=== PATIENT | female | born 1975 | race Caucasian/White ===

== ENCOUNTER 2022-05-12 03:44 | Emergency (ER) | payer OTHER, SELFPAY ==
[2022-05-12] VITALS (20 sets, daily range): BP systolic 127–165; BP diastolic 64–88; PULSE 82–106; RESP 16–37; TEMP 36.2; O2SAT 82–100; BMI 39.1
--- NOTE | 2022-05-12 03:57 | DI.RAD.S_ITS ---
PROCEDURE: XR CHEST 1V INDICATIONS: chest pain TECHNIQUE: One view of the chest was acquired. COMPARISON: [facility], CR, XR CHEST 2 VIEWS, 07/16/2021, 3:06. FINDINGS: Surgical changes and devices: None. Lungs and pleura: Lungs are clear. No pleural effusions or pneumothorax. Mediastinum: Mediastinal contours appear normal. Heart size is normal. Bones and chest wall: No suspicious bony lesions. Overlying soft tissues appear unremarkable. IMPRESSION: No acute cardiopulmonary disease process. Dictated by: Keri Dukes MD, PhD on 05/12/2022 at 8:15 Approved by: Keri Dukes MD, PhD on 05/12/2022 at 8:16
--- NOTE | 2022-05-12 04:10 | ED_ITS ---
HPI - SOB/Dyspnea <Ryder Kingston MD - Last Filed: 05/14/22 07:44> General Chief Complaint: Shortness of Breath/Dyspnea Stated Complaint: SOB, clammy Time Seen by Provider: 05/12/22 04:01 Source: patient Mode of arrival: Ambulatory History of Present Illness HPI Narrative: Patient here with partner. Complaints of feeling sweaty and shortness of breath and throat tightness. No chest pain. No back pain. No syncope. No numbness tingling or weakness. Patient states she has been up all night. Symptoms start ed at 2:00 a.m. this morning. 2 hours ago. Feeling better now. She usually gets up around 1:00 a.m. to go to work. Could not sleep all night. No new stressors. Family doctor did increase her Wellbutrin from 100 mg and is now 200 mg. That was 2 days ago. She did have similar episode 2 or 3 days ago with these symptoms before the change of medication as well. No exertional chest pain. Does not smoke. Does not take cholesterol medication or blood pressure medication. Father has coronary heart disease in his 50s. Patient states her menstrual cycle has been changed significantly as well since July 2021. The duration her cycles are shorter. And variable intensity Related Data Home Medications Medication Instructions Recorded Confirmed No Known Home Medications 05/12/22 05/12/22 Allergies Allergy/AdvReac Type Severity Reaction Status Date / Time No Known Drug Allergies Allergy Verified 05/12/22 03:58 Review of Systems <Ryder Kingston MD - Last Filed: 05/14/22 07:44> Review of Systems Narrative: GENERAL: Denies chills, fatigue, malaise, fever, positive sweats. HEENT: Denies sinus pain, ear pain, sore throat RESPIRATORY: Positive for dyspnea, negative cough CARDIOVASCULAR: Denies chest pain, palpitations GASTROINTESTINAL: Denies nausea, vomiting, abdominal pain : Denies dysuria, frequency, hematuria MUSCULOSKELETAL: denies muscle or bony pain SKIN: Denies rash, skin lesions NEUROLOGIC: Denies weakness, numbness ROS Unobtainable: All systems reviewed & are unremarkable except as noted in HPI and below Patient History <Ryder Kingston MD - Last Filed: 05/14/22 07:44> Social History Smoking Status: Never smoker Exam <Ryder Kingston MD - Last Filed: 05/14/22 07:44> Narrative Exam Narrative: GENERAL: in no distress, not toxic not dyspneic HEAD: Normocephalic. EYES: Pupils equal round No scleral icterus. ENT: Mucous membranes moist. NECK: Trachea midline. No thyromegaly CARDIOVASCULAR: Regular rate and rhythm without murmurs RESPIRATORY: Clear to auscultation. Breath sounds equal bilaterally. No wheezes, rales, or rhonchi. GASTROINTESTINAL: Abdomen soft, non-tender EXTREMITIES: No gross deformities. BACK: No flank tenderness. NEURO: AOx4. SKIN: Warm and dry not diaphoretic PSYCH: Not anxious, is cooperative Initial Vital Signs Initial Vital Signs: Vital Signs Pulse Rate 96 H 05/12/22 03:48 <Brit Tse DO - Last Filed: 05/12/22 09:31> Initial Vital Signs Initial Vital Signs: Vital Signs Pulse Rate 96 H 05/12/22 03:48 Scores <Ryder Kingston MD - Last Filed: 05/14/22 07:44> HEART Score Heart Score history: Slightly Suspicious Heart Score EKG: Normal Heart Score Age: 45-64 years old Heart Score risk factors: 1-2 risk factors Heart Score troponin: < or = to normal limit Heart Score Total: 2 <Brit Tse DO - Last Filed: 05/12/22 09:31> HEART Score Heart Score Total: 2 Course <Ryder Kingston MD - Last Filed: 05/14/22 07:44> Course Course Narrative: 7:00 a.m.. Sign out to Dr. Tse, patient remains chest pain-free. At this time exam and laboratory studies and imaging EKG are reassuring. Will need 2nd troponin at 8:00 a.m.. 6 hours from time of onset Orders Ordered: ED Orders 05/12/22 03:57 XR chest 1V Stat EKG-12 Lead Stat 05/12/22 04:00 Complete Blood Count AUTO DIFF Stat Comprehensive Metabolic Panel Stat D Dimer Stat Lipase Stat Magnesium Stat Test Serum,Qual Stat TSH [Thyroid Stimulating Hormone] Stat Troponin & CK Cardiac Panel Stat 05/12/22 04:20 Urine Drug Screen, Rapid Stat 05/12/22 08:15 Troponin & CK Cardiac Panel Stat Vital Signs Vital signs: Vital Signs - 8 hr 05/12/22 03:52 05/12/22 03:48 05/12/22 03:50 Temperature 97.2 F L Pulse Rate 89 96 H Respiratory Rate 20 Blood Pressure 165/86 H 165/86 H Pulse Oximetry 96 Oxygen Delivery Method Room Air 05/12/22 03:50 05/12/22 04:20 05/12/22 04:30 Temperature Pulse Rate 101 H 86 85 Respiratory Rate 19 Blood Pressure Pulse Oximetry 97 98 100 Oxygen Delivery Method 05/12/22 05:00 05/12/22 05:30 05/12/22 06:16 Temperature Pulse Rate 88 106 H 93 H Respiratory Rate 37 H 17 Blood Pressure Pulse Oximetry 100 100 82 L Oxygen Delivery Method 05/12/22 06:30 05/12/22 07:01 05/12/22 07:23 Temperature Pulse Rate 105 H 94 H 94 H Respiratory Rate 29 H 24 32 H Blood Pressure Pulse Oximetry 99 95 98 Oxygen Delivery Method 05/12/22 07:23 05/12/22 07:30 05/12/22 07:30 Temperature Pulse Rate 96 H Respiratory Rate 27 H Blood Pressure 145/88 H 150/79 H Pulse Oximetry 95 Oxygen Delivery Method 05/12/22 08:00 05/12/22 08:01 05/12/22 08:01 Temperature Pulse Rate 86 85 Respiratory Rate 23 23 Blood Pressure 142/82 H Pulse Oximetry 93 99 Oxygen Delivery Method <Brit Tse, - Last Filed: 05/12/22 09:31> Orders Ordered: ED Orders 05/12/22 03:57 XR chest 1V Stat EKG-12 Lead Stat 05/12/22 04:00 Complete Blood Count AUTO DIFF Stat Comprehensive Metabolic Panel Stat D Dimer Stat Lipase Stat Magnesium Stat Test Serum,Qual Stat TSH [Thyroid Stimulating Hormone] Stat Troponin & CK Cardiac Panel Stat 05/12/22 04:20 Urine Drug Screen, Rapid Stat 05/12/22 08:15 Troponin & CK Cardiac Panel Stat Vital Signs Vital signs: Vital Signs - 8 hr 05/12/22 03:52 05/12/22 03:48 05/12/22 03:50 Temperature 97.2 F L Pulse Rate 89 96 H Respiratory Rate 20 Blood Pressure 165/86 H 165/86 H Pulse Oximetry 96 Oxygen Delivery Method Room Air 05/12/22 03:50 05/12/22 04:20 08/01/22 04:30 Temperature Pulse Rate 101 H 86 85 Respiratory Rate 19 Blood Pressure Pulse Oximetry 97 98 100 Oxygen Delivery Method 05/12/22 05:00 05/12/22 05:30 05/12/22 06:16 Temperature Pulse Rate 88 106 H 93 H Respiratory Rate 37 H 17 Blood Pressure Pulse Oximetry 100 100 82 L Oxygen Delivery Method 05/12/22 06:30 05/12/22 07:01 05/12/22 07:23 Temperature Pulse Rate 105 H 94 H 94 H Respiratory Rate 29 H 24 32 H Blood Pressure Pulse Oximetry 99 95 98 Oxygen Delivery Method 05/12/22 07:23 05/12/22 07:30 05/12/22 07:30 Temperature Pulse Rate 96 H Respiratory Rate 27 H Blood Pressure 145/88 H 150/79 H Pulse Oximetry 95 Oxygen Delivery Method 05/12/22 08:00 05/12/22 08:01 05/12/22 08:01 Temperature Pulse Rate 86 85 Respiratory Rate 23 23 Blood Pressure 142/82 H Pulse Oximetry 93 99 Oxygen Delivery Method MDM - SOB/Dyspnea <Ryder Kingtson MD - Last Filed: 05/14/22 07:44> Differential Diagnosis Differential diagnosis: Likely asthma with exacerbation, pulmonary embolism and other (Atypical chest pain) Lab Data Result diagrams: 05/12/22 04:00 05/12/22 04:00 Labs: Lab Results 05/12/22 05/12/22 05/12/22 Range/Units 04:00 04:00 04:00 WBC 7.7 (4.5-11.0) X10^3/uL RBC 4.83 (4.0-5.2) X10^6/uL Hgb 13.5 (12.0-16.0) g/dL Hct 39.7 (36-46) % MCV 82.2 (80-100) fL MCH 28.0 (26-34) PG MCHC 34.1 (30-36) % RDW 13.4 (11.6-14.8) % Plt Count 324 (150-400) X10^3/uL Neut % (Auto) 73.2 (50-75) % Lymph % (Auto) 16.6 L (25-40) % [place] % (Auto) 8.5 (3-14) % Eos % (Auto) 0.6 L (2-4) % Baso % (Auto) 1.1 (0-2) % Neut # (Auto) 5600 (2041-7856) /uL Lymph # (Auto) 1300 (8158-4247) /uL [place] # (Auto) 700 (0-900) /uL Eos # (Auto) 0 (0-450) /uL Baso # (Auto) 100 (0-100) /uL D-Dimer < 200 (<230) ng/mL Sodium 141 (137-145) mmol/L Potassium 3.5 (3.4-5.1) mmol/L Chloride 106 (98-107) mmol/L Carbon Dioxide 23 (22-32) mmol/L BUN 12 (7-17) mg/dL Creatinine 0.58 (0.52-1.04) mg/dL Estimated GFR > 60 (>60) mL/min BUN/Creatinine Ratio 20.7 (6-22) Glucose 158 H (70-100) mg/dL Calcium 9.2 (8.4-10.2) mg/dL Magnesium 2.1 (1.6-2.3) mg/dL Total Bilirubin 0.6 (0.2-1.3) mg/dL AST 30 (14-36) IU/L ALT 22 (<35) IU/L Alkaline Phosphatase 87 (38-126) U/L Total Creatine Kinase 133 (30-135) U/L CK-MB (CK-2) 0.84 (<2.37) ng/mL CK-MB (CK-2) Rel Index 0.6 L (1.5-5.0) % Troponin I < 0.012 (0.01-0.034) ng/mL Total Protein 8.3 H (6.3-8.2) g/dL Albumin 4.7 (3.5-5.0) g/dL Globulin 3.6 (1.7-4.1) g/dL Albumin/Globulin Ratio 1.3 (1.0-2.8) Lipase 32 (23-300) U/L TSH (0.47-4.68) uIU/mL Serum , Qual (Negative) U Opiates 300ng/mL cut (Negative) Ur Oxycodone Screen (Negative) Urine Methadone Screen (Negative) Ur Barbiturates Screen (Negative) U Tricyclic Antidepress (Negative) Ur Phencyclidine Scrn (Negative) Ur Amphetamines Screen (Negative) U Methamphetamines Scrn (Negative) Ur MDMA Scrn (Ecstasy) (Negative) U Benzodiazepines Scrn (Negative) Urine Cocaine Screen (Negative) U Marijuana (THC) Screen (Negative) 05/12/22 05/12/22 05/12/22 Range/Units 04:00 04:00 04:20 WBC (4.5-11.0) X10^3/uL RBC (4.0-5.2) X10^6/uL Hgb (12.0-16.0) g/dL Hct (36-46) % MCV (80-100) fL MCH (26-34) PG MCHC (30-36) % RDW (11.6-14.8) % Plt Count (150-400) X10^3/uL Neut % (Auto) (50-75) % Lymph % (Auto) (25-40) % [place] % (Auto) (3-14) % Eos % (Auto) (2-4) % Baso % (Auto) (0-2) % Neut # (Auto) (9240-7702) /uL Lymph # (Auto) (5673-4460) /uL [place] # (Auto) (0-900) /uL Eos # (Auto) (0-450) /uL Baso # (Auto) (0-100) /uL D-Dimer (<230) ng/mL Sodium (137-145) mmol/L Potassium (3.4-5.1) mmol/L Chloride (98-107) mmol/L Carbon Dioxide (22-32) mmol/L BUN (7-17) mg/dL Creatinine (0.52-1.04) mg/dL Estimated GFR (>60) mL/min BUN/Creatinine Ratio (6-22) Glucose (70-100) mg/dL Calcium (8.4-10.2) mg/dL Magnesium (1.6-2.3) mg/dL Total Bilirubin (0.2-1.3) mg/dL AST (14-36) IU/L ALT (<35) IU/L Alkaline Phosphatase (38-126) U/L Total Creatine Kinase (30-135) U/L CK-MB (CK-2) (<2.37) ng/mL CK-MB (CK-2) Rel Index (1.5-5.0) % Troponin I (0.01-0.034) ng/mL Total Protein (6.3-8.2) g/dL Albumin (3.5-5.0) g/dL Globulin (1.7-4.1) g/dL Albumin/Globulin Ratio (1.0-2.8) Lipase (23-300) U/L TSH 3.07 (0.47-4.68) uIU/mL Serum , Qual Negative (Negative) U Opiates 300ng/mL cut Negative (Negative) Ur Oxycodone Screen Negative (Negative) Urine Methadone Screen Negative (Negative) Ur Barbiturates Screen Negative (Negative) U Tricyclic Antidepress Negative (Negative) Ur Phencyclidine Scrn Negative (Negative) Ur Amphetamines Screen Negative (Negative) U Methamphetamines Scrn Negative (Negative) Ur MDMA Scrn (Ecstasy) Negative (Negative) U Benzodiazepines Scrn Negative (Negative) Urine Cocaine Screen Negative (Negative) U Marijuana (THC) Screen Negative (Negative) 05/12/22 Range/Units 08:15 WBC (4.5-11.0) X10^3/uL RBC (4.0-5.2) X10^6/uL Hgb (12.0-16.0) g/dL Hct (36-46) % MCV (80-100) fL MCH (26-34) PG MCHC (30-36) % RDW (11.6-14.8) % Plt Count (150-400) X10^3/uL Neut % (Auto) (50-75) % Lymph % (Auto) (25-40) % [place] % (Auto) (3-14) % Eos % (Auto) (2-4) % Baso % (Auto) (0-2) % Neut # (Auto) (6863-3608) /uL Lymph # (Auto) (9216-4026) /uL [place] # (Auto) (0-900) /uL Eos # (Auto) (0-450) /uL Baso # (Auto) (0-100) /uL D-Dimer (<230) ng/mL Sodium (137-145) mmol/L Potassium (3.4-5.1) mmol/L Chloride (98-107) mmol/L Carbon Dioxide (22-32) mmol/L BUN (7-17) mg/dL Creatinine (0.52-1.04) mg/dL Estimated GFR (>60) mL/min BUN/Creatinine Ratio (6-22) Glucose (70-100) mg/dL Calcium (8.4-10.2) mg/dL Magnesium (1.6-2.3) mg/dL Total Bilirubin (0.2-1.3) mg/dL AST (14-36) IU/L ALT (<35) IU/L Alkaline Phosphatase (38-126) U/L Total Creatine Kinase 115 (30-135) U/L CK-MB (CK-2) 0.88 (<2.37) ng/mL CK-MB (CK-2) Rel Index 0.8 L (1.5-5.0) % Troponin I < 0.012 (0.01-0.034) ng/mL Total Protein (6.3-8.2) g/dL Albumin (3.5-5.0) g/dL Globulin (1.7-4.1) g/dL Albumin/Globulin Ratio (1.0-2.8) Lipase (23-300) U/L TSH (0.47-4.68) uIU/mL Serum , Qual (Negative) U Opiates 300ng/mL cut (Negative) Ur Oxycodone Screen (Negative) Urine Methadone Screen (Negative) Ur Barbiturates Screen (Negative) U Tricyclic Antidepress (Negative) Ur Phencyclidine Scrn (Negative) Ur Amphetamines Screen (Negative) U Methamphetamines Scrn (Negative) Ur MDMA Scrn (Ecstasy) (Negative) U Benzodiazepines Scrn (Negative) Urine Cocaine Screen (Negative) U Marijuana (THC) Screen (Negative) Imaging Data Chest x-ray: Radiologist's Impression: No active cardiopulmonary disease demonstrated ECG Data Interpretation: Normal sinus rhythm rate [address] elevation or depression MDM Narrative Medical decision making narrative: Appropriate for observation for repeat troponin. Patient has low heart score. Never had chest pain. <Brit Tse, DO - Last Filed: 05/12/22 09:31> Lab Data Labs: Lab Results 05/12/22 05/12/22 05/12/22 Range/Units 04:00 04:00 04:00 WBC 7.7 (4.5-11.0) X10^3/uL RBC 4.83 (4.0-5.2) X10^6/uL Hgb 13.5 (12.0-16.0) g/dL Hct 39.7 (36-46) % MCV 82.2 (80-100) fL MCH 28.0 (26-34) PG MCHC 34.1 (30-36) % RDW 13.4 (11.6-14.8) % Plt Count 324 (150-400) X10^3/uL Neut % (Auto) 73.2 (50-75) % Lymph % (Auto) 16.6 L (25-40) % [place] % (Auto) 8.5 (3-14) % Eos % (Auto) 0.6 L (2-4) % Baso % (Auto) 1.1 (0-2) % Neut # (Auto) 5600 (1394-4844) /uL Lymph # (Auto) 1300 (6996-2608) /uL [place] # (Auto) 700 (0-900) /uL Eos # (Auto) 0 (0-450) /uL Baso # (Auto) 100 (0-100) /uL D-Dimer < 200 (<230) ng/mL Sodium 141 (137-145) mmol/L Potassium 3.5 (3.4-5.1) mmol/L Chloride 106 (98-107) mmol/L Carbon Dioxide 23 (22-32) mmol/L BUN 12 (7-17) mg/dL Creatinine 0.58 (0.52-1.04) mg/dL Estimated GFR > 60 (>60) mL/min BUN/Creatinine Ratio 20.7 (6-22) Glucose 158 H (70-100) mg/dL Calcium 9.2 (8.4-10.2) mg/dL Magnesium 2.1 (1.6-2.3) mg/dL Total Bilirubin 0.6 (0.2-1.3) mg/dL AST 30 (14-36) IU/L ALT 22 (<35) IU/L Alkaline Phosphatase 87 (38-126) U/L Total Creatine Kinase 133 (30-135) U/L CK-MB (CK-2) 0.84 (<2.37) ng/mL CK-MB (CK-2) Rel Index 0.6 L (1.5-5.0) % Troponin I < 0.012 (0.01-0.034) ng/mL Total Protein 8.3 H (6.3-8.2) g/dL Albumin 4.7 (3.5-5.0) g/dL Globulin 3.6 (1.7-4.1) g/dL Albumin/Globulin Ratio 1.3 (1.0-2.8) Lipase 32 (23-300) U/L TSH (0.47-4.68) uIU/mL Serum , Qual (Negative) U Opiates 300ng/mL cut (Negative) Ur Oxycodone Screen (Negative) Urine Methadone Screen (Negative) Ur Barbiturates Screen (Negative) U Tricyclic Antidepress (Negative) Ur Phencyclidine Scrn (Negative) Ur Amphetamines Screen (Negative) U Methamphetamines Scrn (Negative) Ur MDMA Scrn (Ecstasy) (Negative) U Benzodiazepines Scrn (Negative) Urine Cocaine Screen (Negative) U Marijuana (THC) Screen (Negative) 05/12/22 05/12/22 05/12/22 Range/Units 04:00 04:00 04:20 WBC (4.5-11.0) X10^3/uL RBC (4.0-5.2) X10^6/uL Hgb (12.0-16.0) g/dL Hct (36-46) % MCV (80-100) fL MCH (26-34) PG MCHC (30-36) % RDW (11.6-14.8) % Plt Count (150-400) X10^3/uL Neut % (Auto) (50-75) % Lymph % (Auto) (25-40) % [place] % (Auto) (3-14) % Eos % (Auto) (2-4) % Baso % (Auto) (0-2) % Neut # (Auto) (0426-6980) /uL Lymph # (Auto) (9401-9545) /uL [place] # (Auto) (0-900) /uL Eos # (Auto) (0-450) /uL Baso # (Auto) (0-100) /uL D-Dimer (<230) ng/mL Sodium (137-145) mmol/L Potassium (3.4-5.1) mmol/L Chloride (98-107) mmol/L Carbon Dioxide (22-32) mmol/L BUN (7-17) mg/dL Creatinine (0.52-1.04) mg/dL Estimated GFR (>60) mL/min BUN/Creatinine Ratio (6-22) Glucose (70-100) mg/dL Calcium (8.4-10.2) mg/dL Magnesium (1.6-2.3) mg/dL Total Bilirubin (0.2-1.3) mg/dL AST (14-36) IU/L ALT (<35) IU/L Alkaline Phosphatase (38-126) U/L Total Creatine Kinase (30-135) U/L CK-MB (CK-2) (<2.37) ng/mL CK-MB (CK-2) Rel Index (1.5-5.0) % Troponin I (0.01-0.034) ng/mL Total Protein (6.3-8.2) g/dL Albumin (3.5-5.0) g/dL Globulin (1.7-4.1) g/dL Albumin/Globulin Ratio (1.0-2.8) Lipase (23-300) U/L TSH 3.07 (0.47-4.68) uIU/mL Serum , Qual Negative (Negative) U Opiates 300ng/mL cut Negative (Negative) Ur Oxycodone Screen Negative (Negative) Urine Methadone Screen Negative (Negative) Ur Barbiturates Screen Negative (Negative) U Tricyclic Antidepress Negative (Negative) Ur Phencyclidine Scrn Negative (Negative) Ur Amphetamines Screen Negative (Negative) U Methamphetamines Scrn Negative (Negative) Ur MDMA Scrn (Ecstasy) Negative (Negative) U Benzodiazepines Scrn Negative (Negative) Urine Cocaine Screen Negative (Negative) U Marijuana (THC) Screen Negative (Negative) 05/12/22 Range/Units 08:15 WBC (4.5-11.0) X10^3/uL RBC (4.0-5.2) X10^6/uL Hgb (12.0-16.0) g/dL Hct (36-46) % MCV (80-100) fL MCH (26-34) PG MCHC (30-36) % RDW (11.6-14.8) % Plt Count (150-400) X10^3/uL Neut % (Auto) (50-75) % Lymph % (Auto) (25-40) % [place] % (Auto) (3-14) % Eos % (Auto) (2-4) % Baso % (Auto) (0-2) % Neut # (Auto) (7756-2319) /uL Lymph # (Auto) (8417-1283) /uL [place] # (Auto) (0-900) /uL Eos # (Auto) (0-450) /uL Baso # (Auto) (0-100) /uL D-Dimer (<230) ng/mL Sodium (137-145) mmol/L Potassium (3.4-5.1) mmol/L Chloride (98-107) mmol/L Carbon Dioxide (22-32) mmol/L BUN (7-17) mg/dL Creatinine (0.52-1.04) mg/dL Estimated GFR (>60) mL/min BUN/Creatinine Ratio (6-22) Glucose (70-100) mg/dL Calcium (8.4-10.2) mg/dL Magnesium (1.6-2.3) mg/dL Total Bilirubin (0.2-1.3) mg/dL AST (14-36) IU/L ALT (<35) IU/L Alkaline Phosphatase (38-126) U/L Total Creatine Kinase 115 (30-135) U/L CK-MB (CK-2) 0.88 (<2.37) ng/mL CK-MB (CK-2) Rel Index 0.8 L (1.5-5.0) % Troponin I < 0.012 (0.01-0.034) ng/mL Total Protein (6.3-8.2) g/dL Albumin (3.5-5.0) g/dL Globulin (1.7-4.1) g/dL Albumin/Globulin Ratio (1.0-2.8) Lipase (23-300) U/L TSH (0.47-4.68) uIU/mL Serum , Qual (Negative) U Opiates 300ng/mL cut (Negative) Ur Oxycodone Screen (Negative) Urine Methadone Screen (Negative) Ur Barbiturates Screen (Negative) U Tricyclic Antidepress (Negative) Ur Phencyclidine Scrn (Negative) Ur Amphetamines Screen (Negative) U Methamphetamines Scrn (Negative) Ur MDMA Scrn (Ecstasy) (Negative) U Benzodiazepines Scrn (Negative) Urine Cocaine Screen (Negative) U Marijuana (THC) Screen (Negative) MDM Narrative Medical decision making narrative: Appropriate for observation for repeat troponin. Patient has low heart score. Never had chest pain. Carmencita-signed out to me by Dr. Kingston, seen evaluated her myself. Awake alert oriented 2- troponins. Negative D-dimer. Overall appears well she is not hypoxic. At this time no indication for further workup in the emergency department can follow up with her primary care provider. Possible perimenopausal causing hot flashes. Discharge Plan Departure Patient Disposition: Home Clinical Impression: Shortness of breath Instructions: Menopause Activity Restrictions/Additional Instructions: *You have been diagnosed with shortness of breath *What to do: At this time we did not find any emergent cause of your shortness of breath. Blood work and x-ray are overall reassuring. This may or may not be related to perimenopause. Please follow-up with your primary care provider *Continue to take medications as directed *Follow up with your primary care provider in 2-3 days or call [phone] *Return to ER if you should have increasing chest pain, shortness of breath palpitation or any new, worsening or concerning symptoms Prescriptions: No Action No Known Home Medications Referrals: Emily Perera MD [Primary Care Provider] - Visit Report Forms: Patient Portal/API
[2022-05-12 04:26] LABS: D Dimer < 200 ng/mL (<230)
[2022-05-12 04:28] LABS: Pregnancy Test Serum,Qual Negative (Negative)
[2022-05-12 04:38] LABS: UR Morphine/Opiate cutoff 300 Negative (Negative); Ur Creatinine 50 (Normal); Ur Specific Gravity 1.025 (Normal); Urine Amphetamines Negative (Negative); Urine Barbiturates Negative (Negative); Urine Benzodiazepines Negative (Negative); Urine Cocaine Negative (Negative); Urine MDMA Negative (Negative); Urine Methadone Negative (Negative); Urine Methamphetamines Negative (Negative); Urine Oxycodone Negative (Negative); Urine Phencyclidine Negative (Negative); Urine Tetrahydrocannabinol Negative (Negative); Urine Tricyclic Antidepressant Negative (Negative); Urine pH 5 (Normal)
[2022-05-12 04:48] LABS: Add Manual Diff / Slide Review NO; Basophils Absolute Auto 100 /uL (0-100); Basophils Percent Auto 1.1 % (0-2); Eosinophils Absolute Auto 0 /uL (0-450); Eosinophils Percent Auto 0.6 % (2-4); Hematocrit 39.7 % (36-46); Hemoglobin 13.5 g/dL (12.0-16.0); Lymphocytes Absolute Auto 1300 /uL (1100-4500); Lymphocytes Percent Auto 16.6 % (25-40); Mean Corpuscular HGB Conc 34.1 % (30-36); Mean Corpuscular Volume 82.2 fL (80-100); Monocytes Absolute Auto 700 /uL (0-900); Monocytes Percent Auto 8.5 % (3-14); Neutrophils Absolute Auto 5600 /uL (1500-7000); Neutrophils Percent Auto 73.2 % (50-75); Platelet Count 324 X10^3/uL (150-400); Red Blood Cell Count 4.83 X10^6/uL (4.0-5.2); Red Cell Distribution Width 13.4 % (11.6-14.8); White Blood Cell Count 7.7 X10^3/uL (4.5-11.0)
[2022-05-12 04:53] LABS: Alanine Aminotransferase 22 IU/L (<35); Albumin 4.7 g/dL (3.5-5.0); Albumin Globulin Ratio 1.3 (1.0-2.8); Alkaline Phosphatase 87 U/L (38-126); Aspartate Aminotransferase 30 IU/L (14-36); BUN Creatinine Ratio 20.7 (6-22); Bilirubin Total 0.6 mg/dL (0.2-1.3); Blood Urea Nitrogen 12 mg/dL (7-17); Calcium 9.2 mg/dL (8.4-10.2); Carbon Dioxide 23 mmol/L (22-32); Chloride 106 mmol/L (98-107); Creatine Kinase 133 U/L (30-135); Estimated Glomerular Filt Rate > 60 mL/min (>60); Globulin 3.6 g/dL (1.7-4.1); Glucose 158 mg/dL (70-100); HEMOLYSIS < 15 (0-50); Lipase 32 U/L (23-300); Magnesium 2.1 mg/dL (1.6-2.3); Potassium 3.5 mmol/L (3.4-5.1); Sodium 141 mmol/L (137-145); Total Protein 8.3 g/dL (6.3-8.2)
[2022-05-12 04:58] LABS: Thyroid Stimulating Hormone 3.07 uIU/mL (0.47-4.68)
[2022-05-12 05:05] LABS: Troponin I < 0.012 ng/mL (0.01-0.034)
[2022-05-12 05:08] LABS: CKMB % Relative Index 0.6 % (1.5-5.0); Creatine Kinase MB 0.84 ng/mL (<2.37)
[2022-05-12 08:34] LABS: Creatine Kinase 115 U/L (30-135)
[2022-05-12 08:47] LABS: Troponin I < 0.012 ng/mL (0.01-0.034)
[2022-05-12 08:49] LABS: CKMB % Relative Index 0.8 % (1.5-5.0); Creatine Kinase MB 0.88 ng/mL (<2.37)
== END 2022-05-12 09:50 | disposition home or self-care (01) ==
PROVIDERS: Emergency Medicine; Emergency Provider Emergency Medicine; Family Provider Specialist; PCP Specialist
DX: R06.02 Shortness of breath (principal); R07.9 Chest pain, unspecified; T43.295A Adverse effect of other antidepressants, initial encounter
CPT/HCPCS: 36415; 71045; 80053; 80305; 82550; 82553; 83690; 83735; 83880; 84443; 84484; 84703; 85025; 85379; 93005; 99281; 99282; 99283; 99284

== ENCOUNTER 2022-05-12 12:21 | Emergency (ER) | payer OTHER, SELFPAY ==
[2022-05-12 12:29] VITALS: BP 121/90; PULSE 106; RESP 16; TEMP 36.9; O2SAT 96; BMI 40.7
[2022-05-12 12:45] VITALS: PULSE 112; O2SAT 97
[2022-05-12 13:00] VITALS: PULSE 106; O2SAT 99
--- NOTE | 2022-05-12 13:51 | ED_ITS ---
HPI - SOB/Dyspnea General Chief Complaint: Shortness of Breath/Dyspnea Stated Complaint: Rapid Heart Rate, SOB Time Seen by Provider: 05/12/22 13:38 Limitations: no limitations History of Present Illness HPI Narrative: Patient is a 47-year-old female who is seen and evaluated here this morning. She had full workup this morning with 2- troponins negative D-dimer she was here for sweating episodes fluttering in her chest. She states that her Wellbutrin was increased from 100-200 mg she has been taking it for combination of weight loss and depression. She states that the increased doses only been for couple of days. It is difficult to tell of her sweatiness shortness of breath was from heat or possibly a reaction to the medication. She left the emergency department this morning she got sweaty and had some fluttering in her chest. She has that sense of impending doom. She says something is not quite right. However after she in I reviewed old the side effects of will bland she is having a few of them. Related Data Home Medications Medication Instructions Recorded Confirmed No Known Home Medications 05/12/22 05/12/22 Allergies Allergy/AdvReac Type Severity Reaction Status Date / Time No Known Drug Allergies Allergy Verified 05/12/22 03:58 Review of Systems Review of Systems Narrative: GENERAL: Denies chills, fatigue, malaise, fever, sweats, travel HEENT: Denies sinus pain, ear pain, sore throat, difficulty swallowing, neck pain RESPIRATORY: Denies dyspnea, cough, wheezing, hemoptysis, sputum. CARDIOVASCULAR: See HPI GASTROINTESTINAL: Denies nausea, vomiting, abdominal pain, diarrhea, constipation, melena. : Denies dysuria, frequency, incontinence, hematuria, urinary retention, flank pain. MUSCULOSKELETAL: Denies weakness, joint pain, or bony pain SKIN: No rash, no erythema, no pruritus NEUROLOGIC: Denies weakness, dizziness, headache, numbness, change in speech, confusion PSYCHIATRIC: See HPI 12 point review of systems is negative except for those stated above and HPI Patient History Social History Smoking Status: Never smoker Smoking Status: Never smoker Substance Use Type: does not use Exam Initial Vital Signs Initial Vital Signs: Vital Signs Temperature 98.4 F 05/12/22 12:29 Pulse Rate 106 H 05/12/22 12:29 Respiratory Rate 16 08/01/22 12:29 Blood Pressure 121/90 05/12/22 12:29 Pulse Oximetry 96 05/12/22 12:29 Oxygen Delivery Method 05/12/22 12:29 GENERAL: Alert 47-year-old female HEENT: Head atraumatic,EOMI, pupils reactive, face symmetric, moist mucous membranes CARDIOVASCULAR: Regular rate and rhythm without murmurs, rubs or gallops. RESPIRATORY: Breath sounds equal bilaterally, no wheezes rales or rhonchi. ABDOMEN: Soft, nontender. Normoactive bowel sounds all 4 quadrants. No guarding or rebound. EXTREMITIES: Normal range of motion, no clubbing or edema. Neurovascularly intact NEUROLOGICAL: Alert and oriented x4.Normal gait and speech. SKIN: Warm, dry, no laceration, no petechiae, no rashes or lesions. Course Orders Ordered: ED Orders 05/12/22 12:43 EKG-12 Lead Stat 05/12/22 12:49 BNP [NT-proBNP (BNP-Adult 18+)] Stat Lactate (Lactic Acid) Stat 05/12/22 13:47 Troponin I Stat Vital Signs Vital signs: Vital Signs - 8 hr 05/12/22 12:29 Temperature 98.4 F Pulse Rate 106 H Respiratory Rate 16 Blood Pressure 121/90 Pulse Oximetry 96 Oxygen Delivery Method Room Air MDM - SOB/Dyspnea ECG Data Interpretation: Normal sinus rhythm rate 94 OH interval 132 QRS [address] changes no T- wave inversion MDM Narrative Medical decision making narrative: Long discussion with patient. She overall appears well her EKG does not show any changes. She had a full workup just a few hours ago. She is having many symptoms of Wellbutrin. I suspect that this is from her recent increase of Wellbutrin. sHe and I discussed reducing it back down to 100 mg and discussing this with her primary care provider. Discharge Plan Departure Patient Disposition: Home Clinical Impression: Adverse drug reaction Instructions: Bupropion Activity Restrictions/Additional Instructions: *You have been diagnosed with drug reaction *What to do: At this time I think most your symptoms are related to the increase in Wellbutrin. Please resume her prior dose of 100 mg twice daily and discussed with with your provider if this is still appropriate for you. You may continue to have symptoms for up to 72 hours *Continue to take medications as directed *Follow up with your primary care provider in 2-3 days or call [phone] *Return to ER if you should have increasing chest pain shortness of breath weakness passing out or any new, worsening or concerning symptoms Prescriptions: No Action No Known Home Medications Referrals: Amanda Aiken MD [Primary Care Provider] -
[2022-05-12 14:09] LABS: Troponin I < 0.012 ng/mL (0.01-0.034)
[2022-05-12 14:30] LABS: NT-proBNP (BNP-Adult 18+) 61 pg/mL (<125)
== END 2022-05-12 14:05 | disposition home or self-care (01) ==
PROVIDERS: Emergency Provider Emergency Medicine; Family Provider Specialist; PCP Family Medicine
DX: R00.2 Palpitations (principal); R06.02 Shortness of breath; T43.295A Adverse effect of other antidepressants, initial encounter
CPT/HCPCS: 83880; 84484; 93005